=== PATIENT | female | born 1970 | race Caucasian/White ===

== ENCOUNTER 2024-03-30 12:44 | Emergency (ER) | payer BC, SELFPAY ==
[2024-03-30 12:51] VITALS: BP 142/72
[2024-03-30] MEDS: MOTRIN 600 MG PO (14:52)
[2024-03-30] MEDS: ZOFRAN 4 MG IV (15:45)
[2024-03-30] MEDS: MORPHINE SULFATE 4 MG IV (15:45)
[2024-03-30 15:56] LABS: % Basophils 0.4 % (0-2); % Eosinophils 0.3 % (0-6); % Immature Granulocytes 0.4 % (0-0.5); % Lymphocytes 20.2 % (20.5-51.1); % Monocytes 5.3 % (1.7-9.3); % Neutrophils 73.4 % (42.2-75.2); Absolute Basophils 0.1 10^3/uL (0-0.2); Absolute Immature Granulocytes 0.1 10^3/uL (0-0.05); Absolute Lymphocytes 2.7 10^3/uL (1.2-3.4); Absolute Monocytes 0.7 10^3/uL (0.1-0.6); Absolute Neutrophils 9.9 10^3/uL (1.4-6.5); Hematocrit 38.1 % (37.0-47.0); Hemoglobin 13.6 g/dL (12.0-16.0); Mean Corp Hgb Conc. 35.7 g/dL (33.0-37.0); Mean Corpuscular Hgb 30.8 pg (27.0-31.0); Mean Corpuscular Volume 86.4 fL (81.0-99.0); Mean Platelet Volume 9.9 fL (7.4-10.4); Nucleated Red Blood Cells % 0 %; Platelet Count 326 10^3/uL (130-400); Red Blood Cell Count 4.41 10^6/uL (4.20-5.40); Red Cell Dist. Width 11.8 % (11.5-14.5); White Blood Cell Count 13.5 10^3/uL (4.8-10.8)
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
[2024-03-30 16:11] LABS: ALT (SGPT) 24 U/L (0-35); AST (SGOT) 39 U/L (14-36); Alkaline Phosphatase 56 U/L (38-126); Blood Urea Nitrogen 19 mg/dl (7-17); Calcium 10.4 mg/dl (8.4-10.2); Carbon Dioxide 28 mmol/L (22-30); Chloride 104 mmol/L (98-107); Glucose 96 mg/dl (70-99); Lipase 156 U/L (23-300); Potassium 4.2 mmol/L (3.5-5.1); Sodium 140 mmol/L (135-145); Total Bilirubin 0.5 mg/dl (0.2-1.3); Total Protein 8.2 g/dl (6.3-8.2); eGFR > 60.00
[2024-03-30] MEDS: NORCO 5/325 1 TABLET PO (18:42)
== END 2024-03-30 19:21 | disposition home or self-care (01) ==
LOC: EMR 12:44
PROVIDERS: EMERGENCY PHYSICIAN Emergency Medicine; FAMILY PHYSICIAN Family Medicine
DX: S22.42XA Multiple fractures of ribs, left side, initial encounter for closed fracture (principal); R10.9 Unspecified abdominal pain; V18.0XXA Pedal cycle driver injured in noncollision transport accident in nontraffic accident, initial encounter; Y93.55 Activity, bike riding; Z87.891 Personal history of nicotine dependence
CPT/HCPCS: 99285; 71101; 74177; 80053; 83690; 85025; 86850; 86900; 86901; Q9967

== ENCOUNTER → 2024-07-01 08:52 | Outpatient (REF) | payer BC, SELFPAY | LOC: WDC 08:52 | PROVIDERS: ATTENDING PHYSICIAN Obstetrics & Gynecology Gynecology; FAMILY PHYSICIAN Family Medicine | DX: Z12.31 Encounter for screening mammogram for malignant neoplasm of breast (principal) | CPT/HCPCS: 77063; 77067 ==

== ENCOUNTER → 2025-05-16 06:15 | Emergency (ER) | payer BC, SELFPAY ==
[2025-05-16 07:51] LABS: Hematocrit 40.9 % (37.0-47.0); Hemoglobin 14.3 g/dL (12.0-16.0); Mean Corp Hgb Conc. 35.0 g/dL (33.0-37.0); Mean Corpuscular Volume 86.5 fL (81.0-99.0); Nucleated Red Blood Cells % 0 %; Platelet Count 238 10^3/uL (130-400); Red Cell Dist. Width 11.6 % (11.5-14.5)
[2025-05-16 08:05] LABS: AST (SGOT) 26 U/L (14-36); Albumin 5.1 g/dl (3.5-5.0); Alkaline Phosphatase 48 U/L (38-126); Blood Urea Nitrogen 20 mg/dl (7-17); Calcium 10.2 mg/dl (8.4-10.2); Carbon Dioxide 16 mmol/L (22-30); Chloride 112 mmol/L (98-107); Glucose 138 mg/dl (70-99); Potassium 3.7 mmol/L (3.5-5.1); Sodium 140 mmol/L (135-145); Total Protein 8.1 g/dl (6.3-8.2); eGFR > 60.00
[2025-05-16 08:16] LABS: ALT (SGPT) < 30 U/L (0-35)
--- NOTE | 2025-05-16 08:16 | ED.GENMED ---
History of Present Illness
General
Chief Complaint: Abdominal Pain
Source: patient and spouse
Exam Limitations: none
Time Seen by Provider: 05/16/25 08:00
Nursing documentation reviewed up to this point in time: agreed with
History of Present Illness
History of Present Illness:
Patient is a 54-year-old female who presents to the emergency department with right lower abdominal pain. Patient states symptoms started this morning around 4 AM describes a sharp, stabbing pain in her right lower abdomen with some radiation
around her right lower back. She describes it as a 10/10 in severity. Pain is worse with movement. She reports associated nausea and has had a few episodes of vomiting. She denies any fevers, diarrhea, constipation, or urinary symptoms.
Patient states she felt well prior to bed last night and had a normal appetite yesterday.
No history of similar symptoms. Patient has had a past partial hysterectomy.
Patient is not on any oral anticoagulation
Past History
Past History
ED Past Medical History: Other (Kidney stones); Negative Asthma, HTN, Hypercholesterolemia or NIDDM
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
Social History
Tobacco: Former smoker
Alcohol: Occasional
Personal:
Living: with family
Review of Systems
Review of Systems
Allergies reviewed?: Yes
All Other Systems: ROS reviewed and negative except as documented in HPI and ROS
Phy Exam
Physical Exam
Physical Exam:
Vitals: Patient's vital signs are stable. Afebrile
General: Patient is uncomfortable appearing secondary to pain
Skin: Warm and dry, no rashes or lesions
Head: Normocephalic, atraumatic
Eyes: Sclera nonicteric.
Throat: Protecting airway
Neck: Normal ROM, no cervical spine tenderness, no meningismus
Cardiac: Regular rate and rhythm, no murmurs.
Pulm: Normal respiratory effort, no wheezes, rales, rhonchi heard on exam
.
Abdomen: Abdomen soft. Moderate tenderness in right lower quadrant at McBurney's point with voluntary guarding. No CVA tenderness
Extremities: No evidence of cyanosis or edema
Neuro: AAOx3. Grossly intact
Psychiatric: Normal affect.
Course
Orders/Labs/Results
Orders:
Orders
05/16/25 07:38
Complete Blood Count/With Diff Urgent
Comprehensive Metabolic Panel Urgent
HCG, Serum Qualitative Screen Urgent
Comment: ADD ON
Lipase Urgent
Comment: ADD ON
Urine Culture Urgent
THUY Source: U
Specimen Description:
Obtained by: Random
Date Specimen was Collected: 05/16/25
Time Specimen was Collected: 06:25
05/16/25 08:15
Add On- LAB Urgent
Tests Added?: lipase, serum hcg
CT Abd/pelvis W Iv Cont Urgent
Comment:
Reason For Exam: RLQ pain
0.9% Sodium Chloride 1000 ml [Nss] 1,000 ml IV BOLUS
HYDROmorphone [Dilaudid] 0.5 mg IV NOW STA
Ondansetron Injectable [Zofran] 4 mg IV NOW STA
05/16/25 08:58
Ketorolac [Toradol] 15 mg IV NOW STA
05/16/25 11:13
Tamsulosin [Flomax] 0.4 mg PO NOW STA
05/16/25 11:27
Urinalysis Reflex To Culture Urgent
Date Specimen was Collected: 05/16/25
Time Specimen was Collected: 11:26
Urine Microscopic Reflex Cult Urgent
05/16/25 12:05
Ketorolac [Toradol] 15 mg IV NOW STA
Abnormal Lab Results
05/16/25 05/16/25
07:38 11:27
WBC 14.9 H 10^3/uL
(4.8-10.8)
MPV 10.7 H fL
(7.4-10.4)
Abs Immat Gran (auto) 0.1 H 10^3/uL
(0-0.05)
Absolute Neuts (auto) 11.2 H 10^3/uL
(1.4-6.5)
Absolute Monos (auto) 0.8 H 10^3/uL
(0.1-0.6)
Immature Gran % 0.7 H %
(0-0.5)
Lymphocytes % 18.2 L %
(20.5-51.1)
Chloride 112 H mmol/L
(98-107)
Carbon Dioxide 16 L mmol/L
(22-30)
BUN 20 H mg/dl
(7-17)
Glucose 138 H mg/dl
(70-99)
Albumin 5.1 H g/dl
(3.5-5.0)
Urine Ketones 1+ A
(Negative)
Ur Occult Blood Reflex 4+ A
(Negative)
Urine RBC 16-20 A /HPF
(0-2)
Urine Albumin (Reflex) 1+ A
(Neg - Trace)
05/16/25 07:38
05/16/25 07:38
Vital Signs
Temp: 97.9 F
Initial and Last Documented VS:
Initial Vital Signs
Pulse Resp Pulse Ox
80 28 98
05/16/25 06:17 05/16/25 06:17 05/16/25 06:17
Last Documented Vital Signs
Temp Pulse Resp BP Pulse Ox
99.0 F 68 16 113/68 97
05/16/25 11:00 05/16/25 11:00 05/16/25 11:00 05/16/25 11:00 05/16/25 11:00
MDM/Problems Addressed
Differential Diagnosis Includes:
Not limited to: Acute appendicitis, mesenteric adenitis, epiploic appendagitis, bowel obstruction, cholecystitis, nephrolithiasis, pyelonephritis, etc.
MDM/Problems Addressed:
54-year-old female with 4 hours of severe right lower abdominal pain associated with nausea and vomiting. No fevers or dysuria. No history of similar symptoms. Vital signs stable. On exam�patient uncomfortable appearing secondary to pain.
Abdomen is soft with point tenderness McBurney's point with voluntary guarding. Cardio/pulmonary system unremarkable. Differential includes appendicitis, mesenteric adenitis, nephrolithiasis, pyelonephritis. Lower suspicion for biliary/pelvic
etiology given location of pain. ED plan: Labs, UA, CT abdomen/pelvis. Will treat pain and give IV fluids.
Update 10 AM: Into reassess patient at bedside he reports improvement in pain following Toradol and Dilaudid. Labs reviewed significant for a leukocytosis of 14.9. Chemistry reveals acidosis likely secondary to GI losses. Otherwise unremarkable.
CT pending.
Update: CT reveals 2mm obstructing stone at right UVJ. Urine shows no evidence of infection and patient has no symptoms of a UTI. Leukocytosis likely reactive. Feel stable for discharge home with outpatient urology follow-up. Will discharge w/ urine
strainer, flomax, and pain control. Strict return precautions discussed.
Chronic conditions affecting care:
N/A
Acute Exacerbation and/or Progression of Chronic Illness:
N/A
*Radiology
Radiology exam reviewed: radiology read reviewed
*Pulse Oximetry
SaO2: 98
Patient hypoxic: no
*EKG
Interpreted by ED Provider?: NA
*Refund Clerk Interpretation
Rate: Refund Clerk- N/A
*Critical Care Note
Total Time (30-74mins, 75-104mins- exclusive of procedures): Not Applicable
ED Attending Note
-
Portions of this chart may have been created with voice recognition software.� Occasional wrong word or��sound alike� substitutions may have occurred due to the inherent limitations of voice recognition software.
Discharge Plan
Departure
Patient Disposition: Home (Routine Discharge)
Date of Disposition: 05/16/25
Time of Disposition: 12:05
Patient with high blood pressure during this ER visit?: Yes
Condition: Good
Discharge Problem:
Calculus of ureterovesical junction (UVJ)
Instructions: Kidney Stones (DC), BLOOD PRESSURE
Prescriptions:
New
ondansetron 4 mg tablet,disintegrating
4 mg PO Q8H PRN (Reason: nausea and vomiting) Qty: 7 0RF
tamsulosin [Flomax] 0.4 mg capsule
0.4 mg PO DAILY Qty: 14 0RF
oxycodone 5 mg tablet
5 mg PO Q8H PRN (Reason: Pain) Qty: 5 0RF
No Action
potassium [Potassium-99] 99 MG tablet
99 mg PO DAILY
garlic [garlic oil] 1 CAP capsule
1 cap PO DAILY
magnesium oxide 500 MG capsule
500 mg PO DAILY
cholecalciferol (vitamin D3) 2,000 UNITS tablet
2,000 units PO DAILY
multivitamin with folic acid [Tab-A-Lisa] 1 TABLET tablet
1 tab PO DAILY
[id number]-[id number]-maw-tvr-pfehrct-ast [krill oil] 1 EACH capsule
1 ea PO DAILY
Oil Of Oregano
1 tab PO DAILY
Turmeric
1 tab PO DAILY
Zinc
1 tab PO DAILY
oxycodone 5 MG tablet
2.5 mg PO Q4HPRN PRN (Reason: moderate pain) 0RF
hydrocodone-acetaminophen 5-300 mg tablet
1 tab PO Q6H PRN (Reason: Pain) Qty: 20 0RF
Referrals:
Kathleen Hernandez MD [Family Provider, Family Practice]
Ed Reyes Jr., MD [Active, Urology] - Call in 1-3 days for appt
Activity Restrictions/Additional Instructions:
RETURN TO THE EMERGENCY DEPARTMENT WITH ANY FEVER, CHILLS, INTRACTABLE PAIN, INTRACTABLE NAUSEA/VOMITING, SYMPTOMS OF UTI, WORSENING CURRENT SYMPTOMS, OR ANY OTHER CONCERNS
- As discussed�your CT scan showed a 2 mm stone at your right UVJ.
- For pain management at home�please take 600 mg of ibuprofen every 6-8 hours. You can take Tylenol, as well. For severe a prescription has been sent for oxycodone. This may cause drowsiness if not take prior to driving.
- It is important to strain your urine. Please take Flomax daily until you passed stone
- Follow-up with urology for further evaluation/management to ensure that symptoms are improving. The contact information has been provided for you above
Monitor your symptoms closely and return to the emergency department with any acute worsening/new symptoms or any other concerns
Interventions
Interventions:
*Risk Screen - Suicide Last Done: 05/16/25 06:17
*General Assessment Last Done: 05/16/25 08:13
*Neglect/Abuse Screening Last Done: 05/16/25 06:17
*ED- Fall Risk Assessment Last Done: 05/16/25 08:13
*ED COVID-19 Vaccine History Last Done: 05/16/25 08:13
*Nursing Disposition Last Done: 05/16/25 12:27
KA-Jlvszz-Wjkyoiqkpv Assessment Last Done: 05/16/25 08:13
Discharge Date and Time
Print Language: KOSOVAN
[2025-05-16] MEDS: ZOFRAN 4 MG IV (08:24)
[2025-05-16] MEDS: DILAUDID 0.5 MG IV (08:24)
[2025-05-16] MEDS: NSS 1000 IV (08:25)
[2025-05-16] MEDS: TORADOL 15 MG IV (09:07)
[2025-05-16 09:12] VITALS: BP 136/71
[2025-05-16 09:13] VITALS: BP 136/71
[2025-05-16 09:14] VITALS: BMI 29.9
[2025-05-16 09:22] LABS: HCG, Serum Qualitative Screen Negative
[2025-05-16 09:24] LABS: Lipase 78 U/L (23-300)
[2025-05-16 11:00] VITALS: BP 113/68
[2025-05-16] MEDS: FLOMAX 0.4 MG PO (11:24)
[2025-05-16 11:37] LABS: Urine Character Clear (Clear)
[2025-05-16 11:50] LABS: Urine Red Blood Cell 16-20 /HPF (0-2); Urine Squamous Cell 0-2 /LPF (Few); Urine White Cell 0-2 /HPF (0-5)
== END | disposition home or self-care (01) ==
LOC: EMR 06:15
PROVIDERS: Emergency Medicine; Physician Assistant; EMERGENCY PHYSICIAN Student in an Organized Health Care Education/Training Program; FAMILY PHYSICIAN Family Medicine
DX: N20.2 Calculus of kidney with calculus of ureter (principal); Z87.891 Personal history of nicotine dependence; E87.20 Acidosis, unspecified
CPT/HCPCS: 99284; 96374; 96375; 96361; 74177; 80053; 81003; 81015; 83690; 84703; 85025; 87086; Q9967

== ENCOUNTER → 2025-07-12 10:33 | Outpatient (REF) | payer BC, SELFPAY | LOC: WDC 10:33 | PROVIDERS: ATTENDING PHYSICIAN Obstetrics & Gynecology Gynecology; FAMILY PHYSICIAN Family Medicine | DX: Z12.31 Encounter for screening mammogram for malignant neoplasm of breast (principal) | CPT/HCPCS: 77063; 77067 ==

== ENCOUNTER → 2025-10-13 08:51 | Outpatient (REF) | payer SELFPAY | LOC: HWRAD 08:51 | PROVIDERS: ATTENDING PHYSICIAN Internal Medicine Cardiovascular Disease; FAMILY PHYSICIAN Family Medicine | DX: E78.2 Mixed hyperlipidemia (principal) | CPT/HCPCS: 75571 ==

== ENCOUNTER → 2025-10-31 08:56 | Outpatient (REF) | payer BC, SELFPAY | LOC: HWRCS 08:56 | PROVIDERS: ATTENDING PHYSICIAN Internal Medicine Cardiovascular Disease; FAMILY PHYSICIAN Family Medicine | DX: R06.09 Other forms of dyspnea (principal) | CPT/HCPCS: 93306 ==